=== PATIENT | male | born 1970 | race African-American/Black ===

== ENCOUNTER 2017-05-15 08:53 | Inpatient (IN) | payer OTHER ==
[~2017-05-15] VITALS: Ht 185.4 cm; Wt 136.1 kg
[2017-05-15] MEDS ORDERED: METHYLPREDNISOLONE SOD SUCC 125 MG/2 ML VIAL IV STA (09:00)
[2017-05-15] MEDS ORDERED: MAGNESIUM 2 G PREMIX 50 ML IV ONE (09:00)
[2017-05-15] MEDS ORDERED: IPRATROPIUM BROMIDE (0.02%) 0.5MG/2.5ML NEB HHN STA (09:00)
[2017-05-15] MEDS ORDERED: ALBUTEROL (0.083%) 2.5MG/3ML NEB HHN STA (09:00)
[2017-05-15] MEDS ORDERED: HYDRALAZINE 20MG/ML VIAL IV ONE (09:15)
[2017-05-15 09:31] LABS: BASOPHILS % 0.7 % (0.0-2.0); EOSINOPHILS % 1.6 % (0.0-5.0); HEMATOCRIT. 45.9 % (42.0-52.0); HEMOGLOBIN. 14.7 g/dL (14.0-18.0); MEAN CORPUSCULAR HEMOGLOBIN 24.7 pg (28.0-32.0); MEAN CORPUSCULAR VOLUME 76.8 fL (80.0-94.0); MEAN PLATELET VOLUME 8.3 fl (7.4-10.4); MONOCYTES % 7.9 % (2.0-8.0); NEUTROPHILS % 44.8 % (40.0-76.0); PLATELET 204 x1000/uL (130-400); RED BLOOD CELL COUNT 5.97 mill/uL (4.7-6.1); RED CELL DISTRIBUTION WIDTH 16.1 % (11.6-14.6)
[2017-05-15 09:39] LABS: INR 1.1; PARTIAL THROMBOPLASTIN TIME 26.1 sec (23.4-31.0); PROTHROMBIN TIME 11.1 sec (9.4-11.6)
[2017-05-15] MEDS ORDERED: FUROSEMIDE 40MG/4ML VIAL IVP ONE (09:45)
[2017-05-15 09:47] LABS: CARBON DIOXIDE 24 mEq/L (21-32); CHLORIDE 104 mEq/L (98-107)
[2017-05-15 09:48] LABS: TROPONIN I 0.04 ng/mL (0.00-0.04)
[2017-05-15 12:11] LABS: CLARITY URINE CLEAR (CLEAR); COLOR URINE YELLOW (YELLOW); GLUCOSE URINE NEGATIVE (NEGATIVE); KETONES URINE NEGATIVE (NEGATIVE); LEUKOCYTE ESTERASE URINE NEGATIVE (NEGATIVE); NITRITE URINE NEGATIVE (NEGATIVE); OCCULT BLOOD URINE NEGATIVE (NEGATIVE); PROTEIN URINE NEGATIVE (NEGATIVE); SPECIFIC GRAVITY URINE 1.008 (1.005-1.030); UROBILINOGEN URINE 0.2 E.U./dL (0.2-1.0)
[2017-05-15] MEDS ORDERED: ENALAPRIL 10MG TABLET PO ONE (12:30)
[2017-05-15 15:58] VITALS: BP 189/107
[2017-05-15 16:00] VITALS: BP 163/93
[2017-05-15 20:00] VITALS: BP 168/104
[2017-05-15] MEDS ORDERED: MAGNESIUM/ALUMINUM HYDROXIDE/SIMETHICONE 30ML UDC PO PRN (21:15)
[2017-05-15] MEDS ORDERED: CLONIDINE 0.1MG TABLET PO PRN (21:15)
[2017-05-15] MEDS ORDERED: GUAIFENESIN 200MG/10ML SUGAR FREE UDC PO PRN (21:15)
[2017-05-15] MEDS ORDERED: HYDROCODONE/ACETAMINOPHEN 5/325MG TABLET PO PRN (21:15)
[2017-05-15] MEDS ORDERED: IPRATROPIUM/ALBUTEROL 0.5-3(2.5)MG/3ML NEB INH PRN (21:15)
[2017-05-15] MEDS ORDERED: ACETAMINOPHEN 325MG TABLET PO PRN (21:15)
[2017-05-15] MEDS ORDERED: ACETAMINOPHEN 650MG SUPP PR PRN (21:15)
[2017-05-15] MEDS ORDERED: ZOLPIDEM TARTRATE 5MG TABLET PO PRN (21:15)
[2017-05-15] MEDS ORDERED: DEXTROSE 50% WATER 50ML SYRINGE IV PRN (21:15)
[2017-05-15] MEDS ORDERED: DOCUSATE SODIUM 100MG CAPSULE PO PRN (21:15)
[2017-05-15] MEDS ORDERED: NA PHOS,M-B/NA PHOS,DI-BA ENEMA 118ML PR PRN (21:15)
[2017-05-15] MEDS ORDERED: ACETAMINOPHEN 650MG/20.3ML UDC GT PRN (21:15)
[2017-05-15] MEDS ORDERED: ONDANSETRON HCL 4MG/2ML VIAL IV PRN (21:15)
[2017-05-15] MEDS ORDERED: DIPHENHYDRAMINE 50MG/ML VIAL IV PRN (21:15)
[2017-05-15] MEDS: SODIUM CHLORIDE 0.9% INJ 3ML FLUSH IVF SCH (21:30)
[2017-05-15 23:30] LABS: TROPONIN I 0.02 ng/mL (0.00-0.04)
[2017-05-16] VITALS: BP 167/94
[2017-05-16] MEDS: AMLODIPINE 10MG TABLET PO SCH ×2 (00:32→09:52)
[2017-05-16] MEDS: IPRATROPIUM BROMIDE (0.02%) 0.5MG/2.5ML NEB HHN SCH ×2 (01:51→13:09)
[2017-05-16 04:00] VITALS: BP 141/85
[2017-05-16] MEDS: BLOOD SUGAR DIAGNOSTIC STRIP TEST SCH ×3 (06:10→16:45)
[2017-05-16] MEDS: INSULIN LISPRO 100 UNITS/ML SUBCUT SCH ×3 (06:10→17:15)
[2017-05-16] MEDS: SODIUM CHLORIDE 0.9% INJ 3ML FLUSH IVF SCH ×2 (06:10→15:01)
[2017-05-16 07:12] LABS: BASOPHILS % 0.4 % (0.0-2.0); LYMPHOCYTES % 12.5 % (20.0-50.0); MEAN CORPUSCULAR HEMOGLOBIN 24.4 pg (28.0-32.0); MEAN CORPUSCULAR VOLUME 76.8 fL (80.0-94.0); MEAN PLATELET VOLUME 8.9 fl (7.4-10.4); MONOCYTES % 11.8 % (2.0-8.0); NEUTROPHILS % 75.3 % (40.0-76.0); PLATELET 232 x1000/uL (130-400); RED BLOOD CELL COUNT 5.73 mill/uL (4.7-6.1); RED CELL DISTRIBUTION WIDTH 16.6 % (11.6-14.6)
[2017-05-16 07:32] LABS: CARBON DIOXIDE 30 mEq/L (21-32); CHLORIDE 100 mEq/L (98-107); CREATINE KINASE 507 IU/L (39-308); HDL CHOLESTEROL 54 mg/dL (40-59); LDL CHOLESTEROL 94 mg/dL (5-100); TROPONIN I 0.05 ng/mL (0.00-0.04)
[2017-05-16 08:00] VITALS: BP 156/85
[2017-05-16] MEDS ORDERED: FUROSEMIDE 40MG/4ML VIAL IV SCH (09:00)
[2017-05-16] MEDS ORDERED: ASPIRIN 81MG TABLET PO SCH (09:00)
[2017-05-16 09:01] LABS: T4 FREE 1.1 ng/dL (0.76-1.46)
[2017-05-16 12:00] VITALS: BP 144/86
[2017-05-16] MEDS ORDERED: FURO-151 PO (12:20)
[2017-05-16] MEDS ORDERED: AMLO10TA80 PO (12:20)
[2017-05-16] MEDS ORDERED: ASPI-1160 PO (12:20)
[2017-05-16] MEDS ORDERED: PULM50 HHN (12:21)
[2017-05-16] MEDS ORDERED: BUDESONIDE 0.5MG/2ML NEB HHN SCH (13:00)
[2017-05-16 16:00] VITALS: BP 164/96
[2017-05-16 18:02] VITALS: BP 140/88
== END 2017-05-16 18:40 | disposition home or self-care (01) | DRG 189 ==
LOC: EDBEDREQSVC 09:08 → EDBEDREQ 09:08 → ER 09:52 → 5WST 10:23 → EDBEDREQTM 10:26 → EDBEDREQ 10:26 → ENRESERV 13:24
PROVIDERS: ADMIT Family Medicine; ATTEND Family Medicine
DX: J96.00 Acute respiratory failure, unspecified whether with hypoxia or hypercapnia (principal); J44.1 Chronic obstructive pulmonary disease with (acute) exacerbation; J45.901 Unspecified asthma with (acute) exacerbation; I10 Essential (primary) hypertension; G47.00 Insomnia, unspecified; E66.9 Obesity, unspecified; E11.9 Type 2 diabetes mellitus without complications; F10.10 Alcohol abuse, uncomplicated; F17.210 Nicotine dependence, cigarettes, uncomplicated; Z91.14 Patient's other noncompliance with medication regimen; Z82.49 Family history of ischemic heart disease and other diseases of the circulatory system; Z91.19 Patient's noncompliance with other medical treatment and regimen; Z79.899 Other long term (current) drug therapy; Z79.82 Long term (current) use of aspirin; Z71.6 Tobacco abuse counseling; Z68.39 Body mass index [BMI] 39.0-39.9, adult
CPT/HCPCS: 36415; 71010; 80053; 80061; 81003; 82550; 82962; 83036; 83605; 83880; 84439; 84443; 84484; 85025; 85379; 85610; 85730; 87040; 87086; 93005; 93306; 93970; 94640; 94664; 96365; 96375; 99291; J0360; J1940; J2930; J3475; J7611; J7620